=== PATIENT | male | born 1935 | race Caucasian/White ===

== ENCOUNTER 2017-04-29 14:14 | Inpatient (IN) | payer MEDICARE, OTHER ==
[2017-04-28 16:31] LABS: BASOPHILS 0.8 %; BASOPHILS ABSOLUTE 0.05 10/3/uL (0.0-0.16); HEMOGLOBIN 14.6 g/dL (13.6-17.8); IMMATURE GRANULOCYTES 0.2 %; IMMATURE GRANULOCYTES ABSOLUTE 0.01 10/3/uL (0.0-0.11); LYMPHOCYTES 30.5 %; LYMPHOCYTES ABSOLUTE 2.01 10/3/uL (0.67-4.30); MANUAL DIFF NO %; MEAN CORPUS HGB CONC 33.2 g/dL (32.0-36.0); MEAN CORPUSCULAR HEMOGLOB 31.5 pg (26.0-34.0); MEAN CORPUSCULAR VOLUME 94.8 fL (80-100); MEAN PLATELET VOLUME 11.1 fL (9.2-13.0); MONOCYTES 7.1 %; MONOCYTES ABSOLUTE 0.47 10/3/uL (0.21-1.20); NEUTROPHILS 58.4 %; NEUTROPHILS ABSOLUTE 3.84 10/3/uL (2.02-8.40); PLATELET COUNT 324 10/3/uL (150-400); RBC DISTRIBUTION WIDTH 14.3 % (12.0-16.0); RED CELL COUNT 4.64 10/6/uL (4.7-6.1); WHITE BLOOD CELLS 6.6 10/3/uL (4.5-10.5)
[2017-04-28 16:43] LABS: A/G RATIO 1.3 (0.7-1.9); ALKALINE PHOSPHATASE 59 U/L (45-117); BUN (BLOOD UREA NITROGEN) 16 MG/DL (6-23); CHLORIDE, SERUM 103 MMOL/L (96-112); CREATININE 0.94 MG/DL (0.70-1.30); GFR AFRICAN AMERICAN 88 ML/MIN (>=60); GFR NON AFRICAN AMERICAN 76 ML/MIN (>=60); GLOBULIN 3.2 G/DL (2.5-4.1); GLUCOSE, SERUM 90 MG/DL (60-99); SGOT(AST) 19 U/L (5-40); SGPT(ALT) 24 U/L (5-65); SODIUM, SERUM 138 MMOL/L (135-148); TOTAL BILIRUBIN 0.6 MG/DL (0-1.2); TOTAL PROTEIN 7.2 G/DL (6.0-8.5)
[2017-04-28 16:44] LABS: CALCIUM, SERUM 9.7 MG/DL (8.5-10.4); CO2 (CARBON DIOXIDE) 28 MMOL/L (24-34); POTASSIUM, SERUM 5.3 MMOL/L (3.5-5.3)
[2017-04-28 16:49] LABS: ASCORBIC ACID (UR NOT ORDER) NEG (NEG); BILIRUBIN, URINE NEGATIVE (NEG); KETONE, URINE NEGATIVE (NEG); LEUKOCYTE ESTERASE(NOT OR NEG (NEG); WBC (NOT ORDERED) (RFLEX) < 1 (0-5)
[2017-04-28 17:00] LABS: INTERNATIONAL NORMAL RATI 1.1 UNITS (-); PARTIAL THROMBO TIME 32.6 SEC (22.5-37.2); PROTIME (NOT ORD) 14.4 SEC (12.0-14.5)
--- NOTE | ~2017-04-29 | OP ---
Record Of Operation [facility] [address] [place]. [address] NAME: AMIRA KNAPP : 35 STATUS : DIS IN PAT#: [id number] AGE: 81 ADM/REG DATE : 04/29/17 MR#: [id number] REPORT SERV DATE: 05/02/17 DICTATED BY: KAREN BLANKENSHIP DATE: 04/29/17 REPORT STATUS : Draft TRANSCRIBED BY: MODL DATE: 04/29/17 DATE OF PROCEDURE: 04/29/2017 PREOPERATIVE DIAGNOSIS: Left periprosthetic patella fracture. POSTOPERATIVE DIAGNOSIS: Left periprosthetic patella fracture. PROCEDURE PERFORMED: Left knee inferior pole patellectomy with patellar tendon repair and patellar component revision. SURGEON: Karen Blankenship MD MANAGER MEDIA RELATIONS: Sabino Kelley. ANESTHESIA: General. INDICATIONS: Mr. Knapp is an 81-year-old gentleman who a year ago had a left total knee arthroplasty. He was doing quite well until a few weeks ago when he inadvertently fell hyperflexing his left knee and sustaining a transversed distal third patella fracture. Presenting to [facility] he came to tension band wiring/ORIF by Dr. Baldomero Davis and postoperatively did well. Apparently though by his report it was a little more aggressive with flexion and stair use and presented to Dr. Davis' office and then by opinion with me as I knew him well for further assessment of the failed repair and at this point, he presents for definitive treatment. PROCEDURE IN DETAIL: The patient was clearly identified and after obtaining informed consent he was brought to the operating room at [facility] where he was induced under general anesthesia and his left lower extremity prepped and draped in usual manner. This concluded, after appropriate time-out procedure was performed. CORTEZ exsanguination was performed and tourniquet was elevated to 350 mmHg and successfully tested. This concluded, anterior approach of the knee was performed. There was previously utilized incision. Fascial planes were elevated. The hardware was in excellent position alignment on the superior pole. The inferior pole, however, was significantly fragmented and retracted and the retinaculum was somewhat torn, but for the most part the fixation has failed through on his inferior pole of the patella, which was now in many pieces. This being assessed, the hardware was carefully removed. The two screws sites were marked with a marking pen and removing bony debris and bone cement distally and cleansing the tissues fully noting that the total knee arthroplasty deep to all of this is in good position alignment without evidence of any wear. The tissues were then assessed and it does not appear at all to be possible to proceed with any sort of a fixation of these distal fragments. By removing the inferior pole of the patella, the patellar tendon was nicely reduced back to the superior pole of the patella; however, the patellar component being well fixed proximally has an overhang distally about a centimeter. This was not felt acceptable and therefore with the rongeur the patellar component then is carefully and systematically contoured back to a shorter component, but well fixed in the superior pole. This concluded, after freshening all the tissues, #5 FiberWire was utilized distally in standard fashion to secure the suture into the patellar tendon, medial and then Record Of Operation [address] [place]. [address] NAME: AMIRA KNAPP YAYO : 35 STATUS : DIS IN PAT#: [id number] AGE: 81 ADM/REG DATE : 04/29/17 MR#: [id number] REPORT SERV DATE: 05/02/17 DICTATED BY: KAREN BLANKENSHIP DATE: 04/29/17 REPORT STATUS : Draft TRANSCRIBED BY: SKYE DATE: 04/29/17 lateral halves, drilling a central patellar hole. Sutures were then carefully passed in standard fashion through the patella and the tendon then was carefully reduced back to the patellar fragment itself, fully extended with appropriate tension, at which point the sutures were tied proximally and then after irrigation was performed, tissues were laid down overlying fascia to the patella was reapproximated with Vicryl as well as along the repair site and then the skin was then carefully closed in layers. All this was done with copious irrigation. Ropivacaine was distal to the tissues. This concluded, the leg was cleansed and dressed. The patient was allowed to awakened after being placed in a knee immobilizer to limit range of motion and then returned to the recovery room in stable condition having tolerated the procedure well. POSTOPERATIVE PLAN: Patient will be in a knee immobilizer without any flexion of his knee or active straight leg raising for a period of about 4 weeks. We will reassess and consider early range of motion, which intraoperatively comfortably flexed to about 45 degrees without undue tension on the repair. ESTIMATED BLOOD LOSS: 25 mL. FLUIDS: 900. TOURNIQUET TIME: Less than 60 minutes. PATHOLOGY: Sent specimen. MICROBIOLOGY: None. COMPLICATIONS: None. SPONGE AND NEEDLE COUNTS: Reportedly correct. ANTIBIOTICS: Administered appropriately preoperatively and ordered to be discontinued within 23 hours. HAKEEM/SKYE Karen Blankenship M.D. / [id number] CC: Jeremy Patton M.D.
[~2017-04-29 14:14] MED LIST: ALEVE220 MG PO; C5 PO; CLARIT10 PO; OXYCOD PO; ZOCOR40 PO; [UNRECOGNIZED DRUG - OTHER] PO
[2017-04-30 04:33] LABS: HEMATOCRIT 39.6 % (40.0-51.0); HEMOGLOBIN 13.2 g/dL (13.6-17.8)
[2017-04-30 04:38] LABS: INTERNATIONAL NORMAL RATI 1.2 UNITS (-); PROTIME (NOT ORD) 14.6 SEC (12.0-14.5)
[2017-04-30 04:53] LABS: BUN (BLOOD UREA NITROGEN) 16 MG/DL (6-23); CALCIUM, SERUM 8.8 MG/DL (8.5-10.4); CHLORIDE, SERUM 105 MMOL/L (96-112); CO2 (CARBON DIOXIDE) 25 MMOL/L (24-34); GFR AFRICAN AMERICAN 81 ML/MIN (>=60); GFR NON AFRICAN AMERICAN 70 ML/MIN (>=60); SODIUM, SERUM 138 MMOL/L (135-148)
[2017-04-30 04:55] LABS: GLUCOSE, SERUM 134 MG/DL (60-99); POTASSIUM, SERUM 4.1 MMOL/L (3.5-5.3)
[2017-04-30] MEDS ORDERED: C5 PO (13:28)
[2017-04-30] MEDS ORDERED: OXYCOD PO (13:29)
[2017-04-30] MEDS ORDERED: ASA5GR PO (13:43)
== END 2017-04-30 15:38 | disposition home or self-care (01) | DRG 468 ==
LOC: SDC 14:14 → 3SO 19:37
PROVIDERS: Orthopaedic Surgery
PROC: 0SWD0JC Revision of Synthetic Substitute in Left Knee Joint, Patellar Surface, Open Approach (ICD-10-PCS; 2017-04-29)
PROC: 0SPD04Z Removal of Internal Fixation Device from Left Knee Joint, Open Approach (ICD-10-PCS; 2017-04-29)
PROC: 0QSF0ZZ Reposition Left Patella, Open Approach (ICD-10-PCS; principal; 2017-04-29 15:45)
DX: M97.12XA Periprosthetic fracture around internal prosthetic left knee joint, initial encounter (principal); E78.5 Hyperlipidemia, unspecified; M19.90 Unspecified osteoarthritis, unspecified site; G47.33 Obstructive sleep apnea (adult) (pediatric); Z79.899 Other long term (current) drug therapy; Z88.0 Allergy status to penicillin; Z80.9 Family history of malignant neoplasm, unspecified; Z87.891 Personal history of nicotine dependence
CPT/HCPCS: 36415; 71020; 73560-LT; 80048; 80053; 81001; 85014; 85018; 85025; 85610; 85730; 86850; 86900; 86901; 88300; 88304; 88311; 93005; 97116-GP; 97161-GP; 97165-GO; A9270-GY; G8978-CJ-GP; G8979-CI-GP; J0690; J2250; J2270; J2405; J2795; J3010